=== PATIENT | female | born 1990 | race Caucasian/White ===

== ENCOUNTER 2017-02-05 08:30 | Emergency (ER) | payer MEDICAID | END 2017-02-05 10:20 | disposition home or self-care (01) | LOC: D.ER 08:30 | DX: R07.89 Other chest pain (principal); M94.0 Chondrocostal junction syndrome [Tietze]; K21.9 Gastro-esophageal reflux disease without esophagitis; E28.2 Polycystic ovarian syndrome ==

== ENCOUNTER 2017-04-30 13:53 | Emergency (ER) | payer MEDICAID ==
[~2017-04-30 13:53] MED LIST: ACETAMINOPHEN325 MG PO; DEMEROL50 MG PO; IBUPROFEN600 MG PO; PRENATAL COMPLE1 TAB PO; PROCARDIA XL PO
== END 2017-04-30 15:03 | disposition home or self-care (01) ==
LOC: D.ER 13:53
DX: S93.401A Sprain of unspecified ligament of right ankle, initial encounter (principal); X58.XXXA Exposure to other specified factors, initial encounter; Y93.89 Activity, other specified; Y92.89 Other specified places as the place of occurrence of the external cause

== ENCOUNTER 2017-10-07 11:18 | Emergency (ER) | payer MEDICAID ==
[2017-10-07 12:02] LABS: BASOPHILS 0.1 % (0-2); EOSINOPHILS 0.1 % (0-7); HEMATOCRIT 43.4 % (36.0-48.0); HEMOGLOBIN 15.1 g/dL (12-16); IMMATURE GRANULOCYTES 0.2 % (0-5); LYMPHOCYTES 16.6 % (15-50); MCH 30.9 pg (26.0-34.0); MCHC 34.8 g/dL (31.0-37.0); MCV 88.8 fL (80.0-100.0); MEAN PLATELET VOLUME 10.4 fL (7.4-10.4); MONOCYTES 8.3 % (2-11); NEUTROPHILS 74.7 % (40-80); PLATELET COUNT 280 10x3/uL (130-400); RBC 4.89 10x6/uL (4.00-5.40); RDW 11.9 % (11.5-14.5); WBC 9.4 10x3/uL (4.8-10.8)
[2017-10-07 12:03] LABS: APPEARANCE CLEAR (CLEAR); BILIRUBIN NEGATIVE (NEGATIVE); COLOR STRAW (YELLOW); GLUCOSE NEGATIVE (NEGATIVE); KETONE NEGATIVE (NEGATIVE); NITRITE NEGATIVE (NEGATIVE); PROTEIN NEGATIVE (NEGATIVE); SPECIFIC GRAVITY 1.005 (1.005-1.020); UROBILINOGEN NORMAL (NORMAL)
[2017-10-07 12:16] LABS: ALKALINE PHOSPHATASE 101 U/L (46-116); ALT (SGPT) 26 U/L (10-68); CALC OSMOLALITY 277 mosm/kg (275-300); CALCIUM 9.2 mg/dL (8.5-10.1); CARBON DIOXIDE 28.1 mmol/L (21.0-32.0); CHLORIDE - SERUM 105 mmol/L (98-107); CREATININE - SERUM 0.7 mg/dL (0.6-1.3); GLUCOSE 110 mg/dL (74-106); POTASSIUM - SERUM 3.9 mmol/L (3.5-5.1); PROTEIN - SERUM 7.5 g/dL (6.4-8.2); SODIUM 140 mmol/L (136-145); UREA NITROGEN 8 mg/dL (7-18); eGFR NON AFRICAN AMERICAN > 90 mL/min (90-120)
== END 2017-10-07 13:32 | disposition home or self-care (01) ==
LOC: D.ER 11:18
PROVIDERS: Emergency Medicine
DX: A08.4 Viral intestinal infection, unspecified (principal)

== ENCOUNTER 2018-01-03 20:48 | Emergency (ER) | payer MEDICAID ==
[~2018-01-03] VITALS: Ht 152.4 cm; Wt 67.7 kg
[2018-01-03 20:53] VITALS: Ht 152.4 cm; Wt 67.7 kg
[2018-01-03] MEDS ORDERED: SINGULAIR10 MG (21:02)
[2018-01-03] MEDS ORDERED: ULTRACET TABLET1 TAB PO (22:45)
[2018-01-03 23:28] VITALS: BP 102/47
[2018-01-04] MEDS ORDERED: ROBAXIN500 MG PO (21:44)
== END 2018-01-03 23:29 | disposition home or self-care (01) ==
LOC: D.ER 20:48
DX: R07.9 Chest pain, unspecified (principal)

== ENCOUNTER 2018-01-04 19:16 | Emergency (ER) | payer MEDICAID ==
[~2018-01-04] VITALS: Ht 152.4 cm; Wt 67.3 kg
[~2018-01-04 19:16] MED LIST changes: +SINGULAIR10 MG; +ULTRACET TABLET1 TAB PO
[2018-01-04 19:23] VITALS: Ht 152.4 cm; Wt 67.3 kg
[2018-01-04 20:29] LABS: UDS - AMPHET NEGATIVE QUAL (NEGATIVE); UDS - BARB NEGATIVE QUAL (NEGATIVE); UDS - BENZO NEGATIVE QUAL (NEGATIVE); UDS - COCAINE NEGATIVE QUAL (NEGATIVE); UDS - OPIATE NEGATIVE QUAL (NEGATIVE); UDS - PCP NEGATIVE QUAL (NEGATIVE); UDS - THC NEGATIVE QUAL (NEGATIVE)
[2018-01-04 20:30] LABS: BASOPHILS 0.3 % (0-2); EOSINOPHILS 0.3 % (0-7); HEMATOCRIT 39.7 % (36.0-48.0); HEMOGLOBIN 13.8 g/dL (12-16); IMMATURE GRANULOCYTES 0.2 % (0-5); LYMPHOCYTES 22.5 % (15-50); MCH 31.2 pg (26.0-34.0); MCHC 34.8 g/dL (31.0-37.0); MCV 89.6 fL (80.0-100.0); MEAN PLATELET VOLUME 10.4 fL (7.4-10.4); MONOCYTES 7.1 % (2-11); NEUTROPHILS 69.6 % (40-80); PLATELET COUNT 247 10x3/uL (130-400); RBC 4.43 10x6/uL (4.00-5.40); RDW 11.8 % (11.5-14.5); WBC 8.6 10x3/uL (4.8-10.8)
[2018-01-04 20:36] LABS: HCG URINE NEGATIVE (NEGATIVE)
[2018-01-04 20:37] LABS: APPEARANCE CLEAR (CLEAR); BILIRUBIN NEGATIVE (NEGATIVE); COLOR STRAW (YELLOW); GLUCOSE NEGATIVE (NEGATIVE); KETONE NEGATIVE (NEGATIVE); NITRITE NEGATIVE (NEGATIVE); PROTEIN NEGATIVE (NEGATIVE); UROBILINOGEN NORMAL (NORMAL)
[2018-01-04 20:57] LABS: ALBUMIN 3.8 g/dL (3.4-5.0); ANION GAP 9.6 mmol/L (8-16); BILIRUBIN - TOTAL 0.4 mg/dL (0.2-1.3); CALCIUM 8.7 mg/dL (8.5-10.1); CARBON DIOXIDE 28.9 mmol/L (21.0-32.0); POTASSIUM - SERUM 3.5 mmol/L (3.5-5.1); PROTEIN - SERUM 7.2 g/dL (6.4-8.2)
[2018-01-04] MEDS ORDERED: ROBAXIN500 MG PO (21:44)
[2018-01-04 22:33] VITALS: BP 113/72
== END 2018-01-04 22:15 | disposition home or self-care (01) ==
LOC: D.ER 19:16
PROVIDERS: Family Medicine
DX: T39.395A Adverse effect of other nonsteroidal anti-inflammatory drugs [NSAID], initial encounter (principal); Y92.019 Unspecified place in single-family (private) house as the place of occurrence of the external cause

== ENCOUNTER 2018-01-06 11:58 | Emergency (ER) | payer MEDICAID ==
[~2018-01-06] VITALS: Ht 152.4 cm; Wt 67.3 kg
[~2018-01-06 11:58] MED LIST changes: +ROBAXIN500 MG PO
[2018-01-06 12:03] VITALS: Ht 152.4 cm; Wt 67.3 kg
[2018-01-06 14:35] LABS: ERYTHROCYTE SEDIMENTATION RATE 10 mm/hr (0-20)
[2018-01-06 15:28] VITALS: BP 122/68
== END 2018-01-06 15:29 | disposition home or self-care (01) ==
LOC: D.ER 11:58
PROVIDERS: Family Medicine
DX: R53.1 Weakness (principal)

== ENCOUNTER 2018-01-11 09:22 | Emergency (ER) | payer MEDICAID ==
[~2018-01-11] VITALS: Ht 152.4 cm; Wt 67.3 kg
[2018-01-11 09:27] VITALS: Ht 152.4 cm; Wt 67.3 kg
[2018-01-11] MEDS ORDERED: KLONOPIN1 MG PO (09:35)
[2018-01-11 09:49] LABS: BASOPHILS 0.3 % (0-2); EOSINOPHILS 0.3 % (0-7); HEMATOCRIT 40.5 % (36.0-48.0); HEMOGLOBIN 14.2 g/dL (12-16); IMMATURE GRANULOCYTES 0.1 % (0-5); LYMPHOCYTES 20.5 % (15-50); MCH 31.1 pg (26.0-34.0); MCHC 35.1 g/dL (31.0-37.0); MCV 88.8 fL (80.0-100.0); MEAN PLATELET VOLUME 10.4 fL (7.4-10.4); NEUTROPHILS 71.8 % (40-80); PLATELET COUNT 237 10x3/uL (130-400); RBC 4.56 10x6/uL (4.00-5.40); RDW 11.8 % (11.5-14.5)
[2018-01-11 10:04] LABS: ALBUMIN 3.9 g/dL (3.4-5.0); ALKALINE PHOSPHATASE 105 U/L (46-116); ALT (SGPT) 25 U/L (10-68); BILIRUBIN - TOTAL 0.45 mg/dL (0.2-1.3); CALC OSMOLALITY 275 mosm/kg (275-300); CALCIUM 8.6 mg/dL (8.5-10.1); CARBON DIOXIDE 26.6 mmol/L (21.0-32.0); CHLORIDE - SERUM 105 mmol/L (98-107); CREATININE - SERUM 0.8 mg/dL (0.6-1.3); GLUCOSE 97 mg/dL (74-106); POTASSIUM - SERUM 3.5 mmol/L (3.5-5.1); PROTEIN - SERUM 7.2 g/dL (6.4-8.2); SODIUM 140 mmol/L (136-145); UREA NITROGEN 5 mg/dL (7-18); eGFR NON AFRICAN AMERICAN 90 mL/min (90-120)
[2018-01-11 10:09] LABS: TROPONIN-I < 0.017 ng/mL (0.000-0.060)
[2018-01-11 13:54] VITALS: BP 117/72
== END 2018-01-11 13:55 | disposition home or self-care (01) ==
LOC: D.ER 09:22
PROVIDERS: Family Medicine
DX: R07.9 Chest pain, unspecified (principal); R19.7 Diarrhea, unspecified; R51 Headache

== ENCOUNTER → 2018-06-05 08:45 | Outpatient (CLI) | payer MEDICAID ==
[2018-01-11 09:27] VITALS: BMI 28.9
[~2018-06-05 08:45] MED LIST changes: +KLONOPIN1 MG PO
== END | disposition home or self-care (01) ==
LOC: D.CT 08:45
DX: R51 Headache (principal)

== ENCOUNTER → 2018-07-10 14:58 | Outpatient (CLI) | payer MEDICAID ==
[2018-01-11 09:27] VITALS: BMI 28.9
== END | disposition home or self-care (01) ==
LOC: D.HCCARDIO 14:58
DX: I20.9 Angina pectoris, unspecified (principal)

== ENCOUNTER → 2018-08-14 14:05 | Outpatient (CLI) | payer MEDICAID ==
[2018-01-11 09:27] VITALS: BMI 28.9
== END | disposition home or self-care (01) ==
LOC: D.HCCARDIO 14:00
PROVIDERS: ATTEND Internal Medicine Cardiovascular Disease
DX: R00.2 Palpitations (principal)

== ENCOUNTER → 2020-11-11 08:57 | Outpatient (CLI) | payer MEDICAID ==
[2018-01-11 09:27] VITALS: BMI 28.9
== END | disposition home or self-care (01) ==
LOC: D.HCCECHO 08:57
PROVIDERS: ATTEND Internal Medicine Cardiovascular Disease
DX: I47.1 Supraventricular tachycardia (principal)

== ENCOUNTER 2020-11-21 12:10 | Emergency (ER) | payer MEDICAID ==
[~2020-11-21] VITALS: Ht 152.4 cm; Wt 72.7 kg
[2020-11-21 12:12] VITALS: Ht 152.4 cm; Wt 72.7 kg
[2020-11-21 12:30] LABS: EOSINOPHILS 0.4 % (0-7); HEMATOCRIT 45.6 % (36.0-48.0); HEMOGLOBIN 15.6 g/dL (12-16); LYMPHOCYTES 26.1 % (15-50); MCH 30.2 pg (26.0-34.0); MCHC 34.2 g/dL (31.0-37.0); MCV 88.2 fL (80.0-100.0); MEAN PLATELET VOLUME 8.4 fL (7.4-10.4); MONOCYTES 7.8 % (2-11); NEUTROPHILS 64.7 % (40-80); RBC 5.18 10x6/uL (4.00-5.40); RDW 12.4 % (11.5-14.5); WBC 7.5 10x3/uL (4.8-10.8)
[2020-11-21 12:36] LABS: CALC OSMOLALITY 274 mosm/kg (275-300); CALCIUM 8.9 mg/dL (8.5-10.1); CARBON DIOXIDE 27.2 mmol/L (21.0-32.0); CHLORIDE - SERUM 102 mmol/L (98-107); CREATININE - SERUM 0.8 mg/dL (0.6-1.3); GLUCOSE 84 mg/dL (74-106); POTASSIUM - SERUM 3.4 mmol/L (3.5-5.1); SODIUM 139 mmol/L (136-145); UREA NITROGEN 8 mg/dL (7-18); eGFR NON AFRICAN AMERICAN 88 mL/min (90-120)
[2020-11-21 12:42] LABS: PLATELET COUNT 304 10x3/uL (130-400)
[2020-11-21 12:53] LABS: ALBUMIN 4.1 g/dL (3.4-5.0); ALKALINE PHOSPHATASE 128 U/L (30-120); ALT (SGPT) 43 U/L (10-68); BILIRUBIN - TOTAL 0.44 mg/dL (0.2-1.3); CKMB 0.8 U/L (0.0-3.6); CREATINE KINASE 103 UL (21-215); MAGNESIUM - SERUM 1.9 mg/dL (1.8-2.4); PROTEIN - SERUM 7.6 g/dL (6.4-8.2); TROPONIN-I < 0.017 ng/mL (0.000-0.060)
[2020-11-21 15:01] VITALS: BP 110/63
[2020-11-21] MEDS ORDERED: BENTYL10 MG PO (15:22)
[2020-11-21] MEDS ORDERED: VITAMIN D325 MC1 PO (15:56)
[2020-11-21] MEDS ORDERED: KEPPRA250 MG PO (15:57)
[2020-11-21] MEDS ORDERED: FOLATE0.4 MG PO (15:57)
== END 2020-11-21 16:00 | disposition home or self-care (01) ==
LOC: D.ER 12:10
PROVIDERS: Family Medicine
DX: R07.89 Other chest pain (principal); R10.9 Unspecified abdominal pain; J45.909 Unspecified asthma, uncomplicated